=== PATIENT | female | born 1990 | race Caucasian/White ===

== ENCOUNTER → 2021-08-28 | Outpatient (CLI) | payer OTHER ==
[2021-08-30 07:12] LABS: HCV AB <0.1 (0.0-0.9)
[2021-08-30 08:18] LABS: HBSAG SCREEN Negative (Negative); HEP B CORE AB, TOT Negative (Negative)
[2021-08-30 16:14] LABS: RUBELLA ANTIBODIES, IGG 1.28 index (Immune >0.99); VARICELLA ZOSTER IGG 3102 index (Immune >165)
== END ==
LOC: LAB 16:27
PROVIDERS: Nurse Practitioner Family
DX: Z00.00 Encounter for general adult medical examination without abnormal findings (principal)
CPT/HCPCS: 36415; 86704; 86762; 86787; 86803; 87340

== ENCOUNTER → 2021-10-15 | Outpatient (CLI) | payer BC | LOC: RAD 16:29 | DX: M54.2 Cervicalgia (principal); M54.50 Low back pain, unspecified; M47.816 Spondylosis without myelopathy or radiculopathy, lumbar region | CPT/HCPCS: 72040; 72110 ==

== ENCOUNTER 2021-10-31 22:23 | Emergency (ER) | payer BC ==
[2021-11-01 02:18] LABS: HEMOGLOBIN 13.5 gm/dl (12.3-15.3); RED BLOOD COUNT 4.51 M/UL (4.00-5.10); WHITE BLOOD COUNT 9.7 K/UL (4.5-11.0)
[2021-11-01] MEDS ORDERED: HYDROCODON-ACE1 EAC4 PO (02:43)
[2021-11-01 02:47] LABS: BUN/CREATININE RATIO 17 (0-10)
== END 2021-11-01 02:53 | disposition home or self-care (01) ==
LOC: ER1 22:23
PROVIDERS: Physician Assistant
DX: S86.111A Strain of other muscle(s) and tendon(s) of posterior muscle group at lower leg level, right leg, initial encounter (principal); X58.XXXA Exposure to other specified factors, initial encounter
CPT/HCPCS: 73590; 80048; 85025; 96372; 99283; J2270

== ENCOUNTER → 2021-12-11 | Outpatient (CLI) | payer OTHER, BC ==
[~2021-12-11] MED LIST: HYDROCODON-ACE1 EAC4 PO
== END ==
LOC: US 13:46
DX: R22.41 Localized swelling, mass and lump, right lower limb (principal)
CPT/HCPCS: 93971